=== PATIENT | female | born 1985 | race Caucasian/White ===

== ENCOUNTER → 2017-02-21 | Outpatient (CLI) | payer BC, OTHER ==
[2017-02-21 13:33] LABS: PROLACTIN 11.89 ng/mL
== END | disposition home or self-care (01) ==
LOC: C.LABMFLN 10:20
PROVIDERS: ATTEND Obstetrics & Gynecology
DX: Z31.41 Encounter for fertility testing (principal)

== ENCOUNTER → 2017-05-18 | Outpatient (CLI) | payer BC ==
--- NOTE | 2017-05-18 10:50 | DIAGNOSTIC IMAGING REPORT ---
HYSTEROSALPINGOGRAM HISTORY: 20 seconds FLUOROSCOPY TIME: . 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 Multiple spot images were obtained. FINDINGS: The uterine cavity is normal in size, shape, and position. The fallopian tubes are patent and there is free peritoneal spill bilaterally. IMPRESSION: Normal hysterosalpingogram. Electronically signed by: Harley Shell M.D. 05/18/2017 10:49 AM Dictated Date/Time: 05/18/2017 10:48 AM
--- NOTE | 2017-05-18 14:10 | Progress Note ---
Progress Note Date of Service May 18, 2017. Progress Note I met Karla in the radiology suite and confirmed her consent for HSG. She was positioned in dorsal lithotomy, vaginally prepped with betadine, and speculum was introduced. The anterior lip of the cervix was grasped with single -toothed tenaculum and the catheter was introduced to the external cervical os. The patient was then repositioned, and the speculum removed. Dye was infused through the uterus and tubes under fluoroscopy. Once the testing was complete per radiologist, all instruments were removed. The patient sat upright and was feeling well at the time I left the radiology suite.
== END | disposition home or self-care (01) ==
LOC: C.RAD 10:07
PROVIDERS: ATTEND Obstetrics & Gynecology
DX: Z31.41 Encounter for fertility testing (principal)

== ENCOUNTER 2017-07-09 09:22 | Outpatient (CLI) | payer BC ==
--- NOTE | 2017-07-09 09:55 | OB/GYN Progress Note ---
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 Subjective conversation w/ patient, physical exam Notes: specimen was ID'd and found to be the appropriate patient. the IUI was done easily with a curved crepe box tender. cervix appears open with a small amount of thin mucus present. Review of Systems Constitutional: No fever, No chills, No sweats, No weight loss, No weakness, No fatigue, No problem reported Respiratory: No cough, No sputum, No wheezing, No shortness of breath, No dyspnea on exertion, No dyspnea at rest, No hemoptysis, No problem reported Cardiac: No chest pain, No orthopnea, No PND, No edema, No claudication, No palpitations, No problem reported Breast: No see HPI, No breast lump, No change in shape, No nipple discharge, No breast pain, No problem reported Abdomen: No pain, No nausea, No vomiting, No diarrhea, No constipation, No GI bleeding, No problem reported Female : No see HPI, No dysuria, No urinary frequency, No hematuria, No incontinence, No abnormal vaginal bleeding, No vaginal discharge, No problem reported Objective Physical Exam General Appearance: WELL-APPEARING Abdomen: non tender, soft Assessment and Plan Continue Routine Care: IUI #1 tolerated well. Plan: pending (+) HCG.
== END 2017-07-09 09:55 | disposition home or self-care (01) ==
LOC: C.OPB 09:22 → C.LD 09:23 → C.OPB 09:55
PROVIDERS: ATTEND Obstetrics & Gynecology
DX: Z31.89 Encounter for other procreative management (principal)

== ENCOUNTER → 2017-07-09 | Outpatient (CLI) | payer BC ==
[2017-07-09 08:34] LABS: SEMEN VOLUME 2.5 ML
== END | disposition home or self-care (01) ==
LOC: C.LAB 08:19
PROVIDERS: ATTEND Obstetrics & Gynecology
DX: N97.9 Female infertility, unspecified (principal)